=== PATIENT | male | born 1955 | race Hispanic/Latino ===

== ENCOUNTER 2022-01-26 10:03 | Outpatient (CLI) | payer MEDICARE, BC ==
--- NOTE | 2022-01-26 14:54 | Magnetic Resonance Report ---
MRI RIGHT HIP WITHOUT CONTRAST INDICATION / CLINICAL INFORMATION: M16.11 RT HIP/GROIN AREA PAIN. TECHNIQUE: Multiplanar, multisequence MR images were obtained. No contrast used. COMPARISON: None available. FINDINGS: ACETABULAR LABRUM: Degenerative signal of the posterior right acetabulum (series 5 image 18). ARTICULAR CARTILAGE: Moderate chondrosis. LIGAMENTUM TERES: No significant abnormality. JOINT SPACE AND CAPSULE: No significant abnormality. GLUTEAL MUSCLES/TENDONS: Partial-thickness tear of the right gluteus minimus at its insertion.. ILIOPSOAS MUSCLES/TENDON: No significant abnormality. PROXIMAL HAMSTRING TENDONS: Moderate tendinosis of the proximal right hamstrings. GROIN MUSCLES/TENDONS: No significant abnormality. SOFT TISSUES: No significant abnormality. BONES: No significant bone marrow edema. No fracture. 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 Partially visualized changes of osteonecrosis within the right femoral diaphys is. SACROILIAC JOINT(S): No significant abnormality. LOWER LUMBAR SPINE: Posterior fusion hardware at L5-S1. SOFT TISSUE WITHIN PELVIS: No acute findings. ADDITIONAL FINDINGS: None. IMPRESSION: 1. 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 2. Partial-thickness tear of the right gluteus minimus at its distal insertion. Report dictated by: Mahendra Moyer MD Report dictated on: 01/26/2022 10:39 AM I have reviewed the images, agree with this report, and edited this report as needed. Signer Name: Blane Tsang MD Signed: 01/26/2022 2:49 PM Workstation Name: [id number]
== END 2022-01-26 10:04 | disposition home or self-care (01) ==
LOC: MRI 10:03
PROVIDERS: ATTEND Pain Medicine Interventional Pain Medicine
DX: S71.011A Laceration without foreign body, right hip, initial encounter (principal); M16.11 Unilateral primary osteoarthritis, right hip; X58.XXXA Exposure to other specified factors, initial encounter; Y93.89 Activity, other specified; Y92.89 Other specified places as the place of occurrence of the external cause; Y99.8 Other external cause status
CPT/HCPCS: 73721